=== PATIENT | male | born 1955 | race Caucasian/White ===

== ENCOUNTER → 2016-06-05 | Outpatient (CLI) | payer OTHER ==
[~2016-06-05] MED LIST: ALLOPURINOL100 MG PO; ATARAX,VISTARIL50 MG PO; ATENOLOL50 MG PO; BP MED; Bactroban Oint22 GM T; CHLORDIAZEPOXID10 M2 PO; CHLORDIAZEPOXID25 M1 PO; DICYCLOMINE HCL20 MG PO; EXELON4.6 MG/24 T; FEOSOL325 MG PO; FERROUS SULFAT325 MG PO; FUROSEMIDE20 M1 PO; GEODON20 M1 IM; GOUT MED; HALDOL5 MG PO; HYDROCHLOROTHIA25 M1 PO; IRON324 M1 PO; KLONOPIN2 M1 PO; LIBRIUM5 MG PO; LISINOPRIL20 MG PO; METHOCARBAMOL750 M1 PO; MIRTAZAPINE15 M2 PO; MULTI VITAMINS1 TAB PO; MULTI-VITAMIN1 EACH PO; Motrin,Rufen400 MG PO; NATURE'S BLEND F1 MG PO; NEXIUM40 MG PO; OLANZAPINE10 MG PO; OMEPRAZOLE40 MG PO; ONDANSETRON HYDR4 M1 PO; PRILOSEC40 MG PO; PRINIVIL10 MG PO; PROZAC20 MG PO; ROBAXIN750 MG PO; TENORMIN50 MG PO; THIAMINE HY100 MG/ML IM; VITAMIN D1000 IU PO; VITAMIN D50000 I3 PO; XANAX0.25 MG PO; XANAX1 MG PO; ZESTORETIC PO; ZESTRIL10 MG PO; ZOFRAN ODT4 MG PO; ZOLOFT50 MG PO; ZYPREXA5 M1 PO
== END | disposition home or self-care (01) ==
LOC: RESCLI 02:49
DX: F32.9 Major depressive disorder, single episode, unspecified (principal); I10 Essential (primary) hypertension; M10.9 Gout, unspecified; K21.0 Gastro-esophageal reflux disease with esophagitis

== ENCOUNTER → 2016-09-04 | Outpatient (CLI) | payer MEDICARE, MEDICAID | END | disposition home or self-care (01) | LOC: RESCLI 01:04 | DX: L97.519 Non-pressure chronic ulcer of other part of right foot with unspecified severity (principal); I10 Essential (primary) hypertension; K21.0 Gastro-esophageal reflux disease with esophagitis; E55.9 Vitamin D deficiency, unspecified; E51.9 Thiamine deficiency, unspecified; M10.9 Gout, unspecified; F32.9 Major depressive disorder, single episode, unspecified ==

== ENCOUNTER → 2016-11-13 | Outpatient (CLI) | payer MEDICARE, MEDICAID | END | disposition home or self-care (01) | LOC: RESCLI 03:11 | DX: I10 Essential (primary) hypertension (principal); E55.9 Vitamin D deficiency, unspecified; R07.81 Pleurodynia; M10.9 Gout, unspecified; G62.9 Polyneuropathy, unspecified; K21.0 Gastro-esophageal reflux disease with esophagitis; R73.03 Prediabetes; E51.9 Thiamine deficiency, unspecified; Z87.891 Personal history of nicotine dependence ==

== ENCOUNTER → 2016-11-19 | Outpatient (CLI) | payer MEDICARE, MEDICAID ==
[2016-11-19 11:54] LABS: HEMATOCRIT 33.7 % (42.0-52.0); HEMOGLOBIN 10.1 g/dl (14.0-18.0); MEAN CELL VOLUME 76.4 fl (80.0-94.0); MEAN CORPUSCULAR HGB 22.9 pg (27.0-31.0); MEAN PLATELET VOLUME 10.9 fl (9.6-12.3); RED BLOOD COUNT 4.41 10*6/uL (4.50-5.90); RED CELL DISTRI WIDTH 16.6 % (0-14.5); WHITE BLOOD COUNT 6.3 10*3/uL (4.8-10.8)
[2016-11-19 12:24] LABS: ALBUMIN 3.6 gm/dl (3.1-4.5); ALKALINE PHOSPHATASE 76 U/L (45-117); BUN 13 mg/dl (7-24); CHLORIDE 105 mmol/L (98-107); CHOLESTEROL 137 mg/dL (<200); CREATININE 1.02 mg/dL (0.70-1.30); HDL CHOLESTEROL 45 mg/dl (40-60); LDL CHOLESTEROL 63 mg/dL (9-159); SGOT/AST 14 IU/L (3-35); SGPT/ALT 15 U/L (12-78); SODIUM 139 mmol/L (136-145); TOTAL PROTEIN 7.9 gm/dL (6.4-8.2); TRIGLYCERIDES 147 mg/dl (<150); VLDL CHOLESTEROL 29 mg/dL (6-40)
[2016-11-19 13:12] LABS: VITAMIN D, 25-HYDROXY 33.7 ng/mL (30-100)
== END | disposition home or self-care (01) ==
LOC: LAB 11:34
PROVIDERS: Family Medicine
DX: I10 Essential (primary) hypertension (principal); E55.9 Vitamin D deficiency, unspecified; R73.03 Prediabetes; Z79.899 Other long term (current) drug therapy

== ENCOUNTER → 2016-12-11 | Outpatient (CLI) | payer MEDICARE, MEDICAID | END | disposition home or self-care (01) | LOC: RESCLI 02:10 | DX: E11.40 Type 2 diabetes mellitus with diabetic neuropathy, unspecified (principal); E11.621 Type 2 diabetes mellitus with foot ulcer; R07.81 Pleurodynia; I10 Essential (primary) hypertension; G62.9 Polyneuropathy, unspecified; K21.0 Gastro-esophageal reflux disease with esophagitis; E55.9 Vitamin D deficiency, unspecified; L97.512 Non-pressure chronic ulcer of other part of right foot with fat layer exposed; E51.9 Thiamine deficiency, unspecified; M10.9 Gout, unspecified ==

== ENCOUNTER → 2016-12-13 | Outpatient (CLI) | payer MEDICARE, MEDICAID | END | disposition home or self-care (01) | LOC: CT 00:40 | DX: R91.1 Solitary pulmonary nodule (principal); K44.9 Diaphragmatic hernia without obstruction or gangrene; I31.3 Pericardial effusion (noninflammatory); M47.894 Other spondylosis, thoracic region ==

== ENCOUNTER → 2017-03-13 | Outpatient (CLI) | payer MEDICARE, MEDICAID | END | disposition home or self-care (01) | LOC: RESCLI 08:29 | DX: E11.40 Type 2 diabetes mellitus with diabetic neuropathy, unspecified (principal); I10 Essential (primary) hypertension; M10.9 Gout, unspecified; G62.9 Polyneuropathy, unspecified; K21.0 Gastro-esophageal reflux disease with esophagitis; E55.9 Vitamin D deficiency, unspecified; E51.9 Thiamine deficiency, unspecified; R91.1 Solitary pulmonary nodule; Z87.891 Personal history of nicotine dependence ==

== ENCOUNTER → 2017-06-13 | Outpatient (CLI) | payer MEDICARE, MEDICAID | END | disposition home or self-care (01) | LOC: LAB 00:24 → CT 00:24 | DX: E11.40 Type 2 diabetes mellitus with diabetic neuropathy, unspecified (principal); R91.1 Solitary pulmonary nodule ==

== ENCOUNTER 2017-06-29 02:59 | Inpatient (IN) | payer MEDICARE ==
[2017-06-29] VITALS (67 sets, daily range): BP systolic 67–157; BP diastolic 39–137
[~2017-06-29] VITALS: Ht 198.1 cm; Wt 119.9 kg
--- NOTE | ~2017-06-29 | PR ---
[place], [place] PROGRESS NOTE NAME: SHAMA SMITH [facility] #: [id number] UNIT #: [id number] ROOM: [place] [id number] DOCTOR: CLARA BLANCO MD BIRTHDATE: [birth year] DOS: SUBJECTIVE: The patient had been admitted to the hospital last night to the Intensive Care Unit with history of diarrhea, sepsis, chills and feeling very weak and came to Emergency Department. On investigation was found to be having severe sepsis with hypotension with hypokalemia and hyponatremia and needed to be admitted to the hospital. The patient has past history of anxiety disorder, bipolar, depression, diverticulosis, GERD syndrome, gout, hiatal hernia, hypertension, severe malnutrition and toe ulcer. PAST SURGICAL HISTORY: Right knee surgery and history of colonoscopy and esophagogastroduodenoscopy (EGD). SOCIAL HISTORY: Former smoker, history of alcohol abuse in the past. The patient is feeling somewhat better today. He is not having any fever, but he is complaining of lot of pain in his right foot and right knee, which is possibly due to his gout. LABORATORY DATA: His blood sugar today is 143, phosphorus is 3.3. Lipid profile shows cholesterol 70, HDL 12, LDL 13, triglycerides 244, iron is 9, TSH level is 1.5, T4 is 1.72. Lactic acid is normal at 2. CBC shows white count 15,000, hemoglobin 9.9, hematocrit 32.5 indicating hypochromic anemia and sepsis. Comprehensive metabolic profile shows glucose was 71, BUN 55, creatinine 7.54, GFR 7, sodium 135, potassium 2.8, carbon dioxide 19, calcium 7.3. C-reactive protein ____. Ammonia level is less than 10. OBJECTIVE: VITAL SIGNS: His blood pressure today is 88/49, pulse 75, respirations 18. GENERAL: The patient is more conscious and alert and he feels somewhat better. The patient is getting IV fluid and he is getting IV infusion and he is going to go for CAT scan of the abdomen and also for his foot. CLARA BLANCO MD CM:PNTRANS [id number] CLARA BLANCO MD 06/30/17 0552 interface
--- NOTE | ~2017-06-29 | CON ---
[place], [place] REPORT OF CONSULTATION NAME: SHAMA SMITH UNIT #: [id number] ROOM: [place] [address] DOCTOR: BEST MARIANO MD,SWATI BIRTHDATE: [birth year] DOS: 06/29/2017 The patient was asked for consultation, critical care assessment, but discharged to another facility prior to the physical assessment. SWATI JEWELL MD CM:CONSTR:REPORT OF CONSULTATION 1324 07/02/17 1329 interface
[2017-06-29 03:54] LABS: HEMATOCRIT 32.5 % (42.0-52.0); HEMOGLOBIN 9.9 g/dl (14.0-18.0); MEAN CELL VOLUME 74.2 fl (80.0-94.0); MEAN CORPUSCULAR HGB 22.6 pg (27.0-31.0); MEAN CORPUSCULAR HGB CONC 30.5 g/dl (33.0-37.0); MEAN PLATELET VOLUME 12.4 fl (9.6-12.3); PLATELET COUNT AUTOMATED 140 10*3/uL (130-400); RED BLOOD COUNT 4.38 10*6/uL (4.50-5.90); RED CELL DISTRI WIDTH 17.4 % (0-14.5)
[2017-06-29 04:03] LABS: INTERNATIONAL NORM RATIO 1.1 (2.0-3.5)
[2017-06-29] MEDS ORDERED: 'TENORMIN50 MG PO (04:05)
[2017-06-29] MEDS ORDERED: LISINOPRIL2.5 MG PO (04:06)
[2017-06-29 04:09] LABS: ALBUMIN 2.8 gm/dl (3.1-4.5); ALKALINE PHOSPHATASE 93 U/L (45-117); BUN 55 mg/dl (7-24); CHLORIDE 98 mmol/L (98-107); CREATININE 7.54 mg/dL (0.70-1.30); LIPASE 126 U/L (73-393); POTASSIUM 2.8 mmol/L (3.5-5.1); SGOT/AST 15 IU/L (3-35); SGPT/ALT 15 U/L (12-78); SODIUM 135 mmol/L (136-145); TOTAL PROTEIN 7.3 gm/dL (6.4-8.2)
[2017-06-29 04:11] LABS: TROPONIN I < 0.015 ng/ml (<0.045)
[2017-06-29 04:17] LABS: PLATELET SUFFICIENCY NORMAL (NORMAL); TOTAL CELLS COUNTED 100 #CELLS
[2017-06-29 04:18] LABS: BURR CELLS MODERATE
[2017-06-29 06:20] LABS: FREE T4 1.72 ng/dl (0.76-1.46); PHOSPHOROUS 3.3 mg/dL (2.5-4.9)
[2017-06-29 06:25] LABS: THYROID STIM HORMONE (HS) 1.54 uIU/ml (0.358-4.75)
[2017-06-29] MEDS ORDERED: LISINOPRIL-HCT1 EACH PO (06:33)
[2017-06-29 07:58] LABS: VITAMIN D, 25-HYDROXY 17.7 ng/mL (30-100)
[2017-06-29 13:54] LABS: BILIRUBIN NEGATIVE (NEGATIVE); BLOOD 2+ (NEGATIVE); CLARITY SL CLOUDY (CLEAR); COLOR YELLOW (YELLOW); GLUCOSE NEGATIVE (NEGATIVE); KETONE NEGATIVE (NEGATIVE); LEUKO ESTERASE NEGATIVE (NEGATIVE); NITRITE NEGATIVE (NEGATIVE); PH 5.5 (5.0-9.0); UROBILINOGEN 0.2 E.U./dl (0.2-1.0)
[2017-06-29 14:02] LABS: URINE AMPHETAMINES < 1000 (1000ng/ml); URINE BARBITURATES < 200 (200ng/ml); URINE BENZODIAZEPINES < 200 (200ng/ml); URINE CANNABINOIDS (THC) < 50 (50ng/ml); URINE COCAINE < 300 (300ng/ml); URINE METHADONE < 300 (300ng/ml); URINE OPIATES < 300 (300ng/ml); URINE PHENCYCLIDINE < 25 (25ng/ml)
[2017-06-29 14:50] LABS: BACTERIA TRACE
[2017-06-29 18:33] LABS: ABG HCO3 7.6 mmol/l (22-26); ABG O2 SATURATION 95.8 % (95-97); ARTERIAL BLOOD GAS PCO2 14.9 mmHg (35-45); ARTERIAL BLOOD GAS PH 7.336 (7.35-7.45); ARTERIAL BLOOD GAS PO2 86.5 mmHg (80-90)
[2017-06-29 18:34] LABS: ABG BASE EXCESS -16.5 mmol/L (-2.0-2.0)
[2017-06-29 19:31] LABS: CREATININE 7.41 mg/dL (0.70-1.30); POTASSIUM 2.7 mmol/L (3.5-5.1)
[2017-06-29] MEDS ORDERED: ZYVOX600 MG/300 IV (21:58)
[2017-06-29] MEDS ORDERED: METRONIDAZ500 MG/101 IV (22:00)
[2017-06-29] MEDS ORDERED: ZOSYN 2.252.25 GM/50 IV (22:00)
== END 2017-06-29 23:10 | disposition short-term general hospital (02) | DRG 871 ==
LOC: ED 02:59 → EDHOLD 04:37 → ICCU 04:45
PROVIDERS: Emergency Medicine Emergency Medical Services; Internal Medicine; Internal Medicine Critical Care Medicine; Internal Medicine Nephrology
PROC: 0T9B70Z Drainage of Bladder with Drainage Device, Via Natural or Artificial Opening (ICD-10-PCS; principal; 2017-06-29)
DX: A41.9 Sepsis, unspecified organism (principal); E43 Unspecified severe protein-calorie malnutrition; N17.0 Acute kidney failure with tubular necrosis; E87.2 Acidosis; I95.9 Hypotension, unspecified; L97.519 Non-pressure chronic ulcer of other part of right foot with unspecified severity; E87.1 Hypo-osmolality and hyponatremia; F31.81 Bipolar II disorder; R65.20 Severe sepsis without septic shock; R19.5 Other fecal abnormalities; F10.11 Alcohol abuse, in remission; D50.9 Iron deficiency anemia, unspecified; F41.9 Anxiety disorder, unspecified; I10 Essential (primary) hypertension; K21.9 Gastro-esophageal reflux disease without esophagitis; K57.90 Diverticulosis of intestine, part unspecified, without perforation or abscess without bleeding; K52.9 Noninfective gastroenteritis and colitis, unspecified; R73.9 Hyperglycemia, unspecified; E87.6 Hypokalemia; M1A.9XX1 Chronic gout, unspecified, with tophus (tophi); K44.9 Diaphragmatic hernia without obstruction or gangrene; Z79.899 Other long term (current) drug therapy; Z83.3 Family history of diabetes mellitus; Z68.27 Body mass index [BMI] 27.0-27.9, adult

== ENCOUNTER → 2017-09-03 | Outpatient (CLI) | payer MEDICARE ==
[2017-09-03] VITALS (8 sets, daily range): BP systolic 105–123; BP diastolic 65–77
[~2017-09-03] MED LIST changes: +'TENORMIN50 MG PO; +CARVEDILOL12.5 MG PO; +DULCOLAX10 M1 R; +LISINOPRIL-HCT1 EACH PO; +LISINOPRIL2.5 MG PO; +METRONIDAZ500 MG/101 IV; +MIRALAX POWDER17 G1 PO; +NEPHRO-VITE TA0.8 MG PO; +NORVASC5 MG PO; +OMEPRAZOLE10 MG PO; +OXYCODONE HCL10 M1 PO; +RENAGEL800 M1 PO; +VITAMIN D350000 UNIT PO; +ZOSYN 2.252.25 GM/50 IV; +ZYVOX600 MG/300 IV
[2017-09-03 09:21] LABS: BASO # 0.1 10*3/uL (0.0-0.1); EOS # 0.3 10*3/uL (0.0-0.4); EOS % 4.6 % (1.0-4.0); HEMATOCRIT 25.6 % (42.0-52.0); HEMOGLOBIN 8.1 g/dl (14.0-18.0); LYMPH # 2.4 10*3/uL (1.3-4.4); MEAN CELL VOLUME 91.4 fl (80.0-94.0); MEAN CORPUSCULAR HGB 28.9 pg (27.0-31.0); MEAN CORPUSCULAR HGB CONC 31.6 g/dl (33.0-37.0); MEAN PLATELET VOLUME 8.6 fl (9.6-12.3); MONO # 0.4 10*3/uL (0.1-1.0); NEUT # 3.6 10*3/uL (2.3-7.9); NEUT % 53.1 % (47.0-73.0); PLATELET COUNT AUTOMATED 229 10*3/uL (130-400); RED CELL DISTRI WIDTH 14.5 % (0-14.5); WHITE BLOOD COUNT 6.8 10*3/uL (4.8-10.8)
== END | disposition home or self-care (01) ==
LOC: TRNFUSION 00:08
PROVIDERS: Internal Medicine
DX: D64.9 Anemia, unspecified (principal); I11.0 Hypertensive heart disease with heart failure; I50.9 Heart failure, unspecified; F31.9 Bipolar disorder, unspecified; M19.90 Unspecified osteoarthritis, unspecified site; M1A.9XX0 Chronic gout, unspecified, without tophus (tophi); Z89.512 Acquired absence of left leg below knee; Z89.511 Acquired absence of right leg below knee; Z89.022 Acquired absence of left finger(s); Z89.021 Acquired absence of right finger(s)

== ENCOUNTER → 2017-10-10 | Outpatient (CLI) | payer MEDICARE | END | disposition home or self-care (01) | LOC: RESCLI 03:35 | DX: Z48.89 Encounter for other specified surgical aftercare (principal); I73.9 Peripheral vascular disease, unspecified; I12.9 Hypertensive chronic kidney disease with stage 1 through stage 4 chronic kidney disease, or unspecified chronic kidney disease; N18.9 Chronic kidney disease, unspecified; D59.9 Acquired hemolytic anemia, unspecified; K70.9 Alcoholic liver disease, unspecified; A48.3 Toxic shock syndrome; M62.81 Muscle weakness (generalized); M19.91 Primary osteoarthritis, unspecified site; K85.20 Alcohol induced acute pancreatitis without necrosis or infection; F32.9 Major depressive disorder, single episode, unspecified; F10.20 Alcohol dependence, uncomplicated; G62.9 Polyneuropathy, unspecified; K21.0 Gastro-esophageal reflux disease with esophagitis; E55.9 Vitamin D deficiency, unspecified; R91.1 Solitary pulmonary nodule; E66.9 Obesity, unspecified; L97.519 Non-pressure chronic ulcer of other part of right foot with unspecified severity; M25.50 Pain in unspecified joint; E51.9 Thiamine deficiency, unspecified; M1A.9XX1 Chronic gout, unspecified, with tophus (tophi); Z89.511 Acquired absence of right leg below knee; Z89.021 Acquired absence of right finger(s); Z79.899 Other long term (current) drug therapy ==

== ENCOUNTER → 2018-01-24 | Outpatient (CLI) | payer MEDICARE ==
[2018-01-24 14:33] LABS: ALBUMIN 3.9 gm/dl (3.1-4.5); ALKALINE PHOSPHATASE 87 U/L (45-117); BUN 12 mg/dl (7-24); CHLORIDE 106 mmol/L (98-107); CREATININE 1.29 mg/dL (0.70-1.30); PHOSPHOROUS 3.8 mg/dL (2.5-4.9); POTASSIUM 3.9 mmol/L (3.5-5.1); SGOT/AST 12 IU/L (3-35); SGPT/ALT 17 U/L (12-78); SODIUM 139 mmol/L (136-145); TOTAL PROTEIN 8.1 gm/dL (6.4-8.2)
[2018-01-24 14:43] LABS: BASO # 0.1 10*3/uL (0.0-0.1); EOS # 0.6 10*3/uL (0.0-0.4); EOS % 7.2 % (1.0-4.0); HEMATOCRIT 39.7 % (42.0-52.0); HEMOGLOBIN 12.8 g/dl (14.0-18.0); LYMPH # 2.5 10*3/uL (1.3-4.4); LYMPH % 27.8 % (27.0-41.0); MEAN CELL VOLUME 91.3 fl (80.0-94.0); MEAN CORPUSCULAR HGB 29.4 pg (27.0-31.0); MEAN CORPUSCULAR HGB CONC 32.2 g/dl (33.0-37.0); MEAN PLATELET VOLUME 10.9 fl (9.6-12.3); MONO # 0.5 10*3/uL (0.1-1.0); MONO % 5.4 % (3.0-9.0); NEUT # 5.2 10*3/uL (2.3-7.9); NEUT % 58.3 % (47.0-73.0); PLATELET COUNT AUTOMATED 217 10*3/uL (130-400); RED BLOOD COUNT 4.35 10*6/uL (4.50-5.90); RED CELL DISTRI WIDTH 13.6 % (0-14.5); WHITE BLOOD COUNT 8.9 10*3/uL (4.8-10.8)
== END | disposition home or self-care (01) ==
LOC: RESCLI 08:50
PROVIDERS: Internal Medicine
DX: Z48.89 Encounter for other specified surgical aftercare (principal); I12.9 Hypertensive chronic kidney disease with stage 1 through stage 4 chronic kidney disease, or unspecified chronic kidney disease; N18.9 Chronic kidney disease, unspecified; K21.0 Gastro-esophageal reflux disease with esophagitis; K70.9 Alcoholic liver disease, unspecified; M62.81 Muscle weakness (generalized); M19.91 Primary osteoarthritis, unspecified site; M1A.9XX1 Chronic gout, unspecified, with tophus (tophi); G62.9 Polyneuropathy, unspecified; R91.1 Solitary pulmonary nodule; Z89.511 Acquired absence of right leg below knee; Z79.899 Other long term (current) drug therapy; Z89.021 Acquired absence of right finger(s); Z87.891 Personal history of nicotine dependence

== ENCOUNTER → 2018-08-13 | Outpatient (CLI) | payer MEDICARE ==
[~2018-08-13] MED LIST changes: +AMLODIPINE BESYL5 MG PO; +XTAMPZA ER18 MG PO; +ZYVOX600 MG PO
== END | disposition home or self-care (01) ==
LOC: WOUNDCARE 01:59
DX: L02.415 Cutaneous abscess of right lower limb (principal); A49.02 Methicillin resistant Staphylococcus aureus infection, unspecified site; I10 Essential (primary) hypertension; F41.9 Anxiety disorder, unspecified; F31.81 Bipolar II disorder; K21.9 Gastro-esophageal reflux disease without esophagitis; Z87.891 Personal history of nicotine dependence

== ENCOUNTER → 2018-11-14 | Outpatient (CLI) | payer MEDICARE | END | disposition home or self-care (01) | LOC: RESCLI 00:34 | DX: E11.40 Type 2 diabetes mellitus with diabetic neuropathy, unspecified (principal); M10.9 Gout, unspecified; I10 Essential (primary) hypertension; Z89.511 Acquired absence of right leg below knee; Z89.021 Acquired absence of right finger(s); Z79.899 Other long term (current) drug therapy; Z87.891 Personal history of nicotine dependence ==

== ENCOUNTER → 2019-01-23 | Outpatient (CLI) | payer MEDICARE | END | disposition home or self-care (01) | LOC: RESCLI 00:45 | DX: Z23 Encounter for immunization (principal); G62.9 Polyneuropathy, unspecified; M10.9 Gout, unspecified; I12.9 Hypertensive chronic kidney disease with stage 1 through stage 4 chronic kidney disease, or unspecified chronic kidney disease; E11.22 Type 2 diabetes mellitus with diabetic chronic kidney disease; E11.40 Type 2 diabetes mellitus with diabetic neuropathy, unspecified; N18.9 Chronic kidney disease, unspecified; F10.20 Alcohol dependence, uncomplicated; Z79.899 Other long term (current) drug therapy; Z89.511 Acquired absence of right leg below knee; Z89.021 Acquired absence of right finger(s); Z89.512 Acquired absence of left leg below knee; Z79.4 Long term (current) use of insulin; Z87.891 Personal history of nicotine dependence ==

== ENCOUNTER → 2019-02-24 | Outpatient (CLI) | payer MEDICARE | END | disposition home or self-care (01) | LOC: RESCLI 01:31 | DX: I10 Essential (primary) hypertension (principal); G62.9 Polyneuropathy, unspecified; K21.9 Gastro-esophageal reflux disease without esophagitis; M10.9 Gout, unspecified; E11.40 Type 2 diabetes mellitus with diabetic neuropathy, unspecified; Z89.511 Acquired absence of right leg below knee; Z89.021 Acquired absence of right finger(s); Z89.512 Acquired absence of left leg below knee; Z79.899 Other long term (current) drug therapy; Z87.891 Personal history of nicotine dependence ==

== ENCOUNTER → 2019-11-26 | Outpatient (CLI) | payer MEDICARE ==
[2019-11-26 11:27] LABS: BASO # 0.1 10*3/uL (0.0-0.1); BASO % 1.3 % (0.0-1.0); EOS # 0.5 10*3/uL (0.0-0.4); EOS % 7.5 % (1.0-4.0); HEMATOCRIT 39.1 % (42.0-52.0); LYMPH # 1.9 10*3/uL (1.3-4.4); LYMPH % 28.5 % (27.0-41.0); MEAN CELL VOLUME 93.5 fl (80.0-94.0); MEAN CORPUSCULAR HGB 29.9 pg (27.0-31.0); MEAN PLATELET VOLUME 10.5 fl (9.6-12.3); MONO # 0.5 10*3/uL (0.1-1.0); MONO % 7.3 % (3.0-9.0); NEUT # 3.7 10*3/uL (2.3-7.9); NEUT % 55.3 % (47.0-73.0); PLATELET COUNT AUTOMATED 235 10*3/uL (130-400); RED BLOOD COUNT 4.18 10*6/uL (4.50-5.90); RED CELL DISTRI WIDTH 14.1 % (0-14.5); WHITE BLOOD COUNT 6.7 10*3/uL (4.8-10.8)
[2019-11-26 11:50] LABS: ALBUMIN 3.7 gm/dl (3.1-4.5); BUN 14 mg/dl (7-24); CHLORIDE 111 mmol/L (98-107); CHOLESTEROL 159 mg/dL (<200); CREATININE 1.14 mg/dL (0.70-1.30); IRON 66 ug/dL (65-175); POTASSIUM 3.9 mmol/L (3.5-5.1); SGOT/AST 10 IU/L (3-35); SGPT/ALT 16 U/L (12-78); SODIUM 138 mmol/L (136-145); TOTAL IRON BINDING CAPACITY 338 ug/dl (250-450); TRIGLYCERIDES 130 mg/dl (<150); VLDL CHOLESTEROL 26 mg/dL (6-40)
[2019-11-26 11:52] LABS: ALKALINE PHOSPHATASE 68 U/L (45-117); HDL CHOLESTEROL 50 mg/dl (40-60); LDL CHOLESTEROL 83 mg/dL (9-159); TOTAL PROTEIN 7.4 gm/dL (6.4-8.2)
== END | disposition home or self-care (01) ==
LOC: RESCLI 10:31
PROVIDERS: Internal Medicine; ATTEND Internal Medicine Nephrology
DX: M10.9 Gout, unspecified (principal); E11.40 Type 2 diabetes mellitus with diabetic neuropathy, unspecified; I12.0 Hypertensive chronic kidney disease with stage 5 chronic kidney disease or end stage renal disease; N18.9 Chronic kidney disease, unspecified; D50.8 Other iron deficiency anemias; K21.9 Gastro-esophageal reflux disease without esophagitis; Z89.512 Acquired absence of left leg below knee; Z89.511 Acquired absence of right leg below knee; Z79.899 Other long term (current) drug therapy; Z98.890 Other specified postprocedural states; Z87.891 Personal history of nicotine dependence

== ENCOUNTER → 2020-03-10 | Outpatient (CLI) | payer MEDICARE | END | disposition home or self-care (01) | LOC: RESCLI 00:25 | PROVIDERS: ATTEND Internal Medicine Nephrology | DX: I10 Essential (primary) hypertension (principal); M10.9 Gout, unspecified; E11.9 Type 2 diabetes mellitus without complications; K21.9 Gastro-esophageal reflux disease without esophagitis; Z79.899 Other long term (current) drug therapy; Z89.512 Acquired absence of left leg below knee; Z89.511 Acquired absence of right leg below knee ==

== ENCOUNTER 2020-05-25 14:45 | Emergency (ER) | payer OTHER ==
[~2020-05-25] VITALS: Wt 90.7 kg
[2020-05-25] MEDS ORDERED: CEPHALEXIN500 M1 PO (17:56)
[2020-05-25] MEDS ORDERED: HYDROCODONE-AC1 EAC1 PO (17:56)
== END 2020-05-25 18:21 | disposition home or self-care (01) ==
LOC: ED 14:45
DX: T84.84XA Pain due to internal orthopedic prosthetic devices, implants and grafts, initial encounter (principal); I10 Essential (primary) hypertension; K21.9 Gastro-esophageal reflux disease without esophagitis; F32.9 Major depressive disorder, single episode, unspecified; M10.9 Gout, unspecified; Y92.89 Other specified places as the place of occurrence of the external cause

== ENCOUNTER → 2020-07-08 | Outpatient (CLI) | payer OTHER ==
[~2020-07-08] MED LIST changes: +CEPHALEXIN500 M1 PO; +HYDROCODONE-AC1 EAC1 PO
[2020-07-08 16:48] LABS: BASO # 0.1 10*3/uL (0.0-0.1); BASO % 1.2 % (0.0-1.0); EOS # 0.6 10*3/uL (0.0-0.4); EOS % 5.2 % (1.0-4.0); HEMATOCRIT 42.9 % (42.0-52.0); LYMPH # 2.3 10*3/uL (1.3-4.4); LYMPH % 19.2 % (27.0-41.0); MEAN CELL VOLUME 89.2 fl (80.0-94.0); MEAN CORPUSCULAR HGB 28.7 pg (27.0-31.0); MEAN CORPUSCULAR HGB CONC 32.2 g/dl (33.0-37.0); MEAN PLATELET VOLUME 10.4 fl (9.6-12.3); MONO # 1.2 10*3/uL (0.1-1.0); MONO % 9.9 % (3.0-9.0); NEUT # 7.6 10*3/uL (2.3-7.9); NEUT % 64.2 % (47.0-73.0); PLATELET COUNT AUTOMATED 279 10*3/uL (130-400); RED BLOOD COUNT 4.81 10*6/uL (4.50-5.90); WHITE BLOOD COUNT 11.8 10*3/uL (4.8-10.8)
[2020-07-08 16:59] LABS: BUN 13 mg/dl (7-24); CHLORIDE 105 mmol/L (98-107); CREATININE 1.13 mg/dL (0.70-1.30); POTASSIUM 3.7 mmol/L (3.5-5.1); SODIUM 137 mmol/L (136-145)
== END | disposition home or self-care (01) ==
LOC: COVID19 14:09 → LAB 14:09
PROVIDERS: ATTEND Orthopaedic Surgery
DX: Z01.818 Encounter for other preprocedural examination (principal); T84.290A Other mechanical complication of internal fixation device of bones of hand and fingers, initial encounter; Z20.822 Contact with and (suspected) exposure to COVID-19

== ENCOUNTER → 2020-07-12 | Day surgery (SDC) | payer OTHER ==
[2020-07-08 16:04] VITALS: BP 133/79
[~2020-07-12] VITALS: Ht 198.1 cm; Wt 99.8 kg
[2020-07-12 11:03] VITALS: BP 114/72
[2020-07-12 12:32] VITALS: BP 91/57
[2020-07-12 12:47] VITALS: BP 101/63
[2020-07-12 13:02] VITALS: BP 103/64
== END | disposition home or self-care (01) ==
LOC: SDC 07-08 14:00
PROVIDERS: ATTEND Orthopaedic Surgery
DX: T84.290A Other mechanical complication of internal fixation device of bones of hand and fingers, initial encounter (principal); I10 Essential (primary) hypertension; Z87.891 Personal history of nicotine dependence; Y83.8 Other surgical procedures as the cause of abnormal reaction of the patient, or of later complication, without mention of misadventure at the time of the procedure; Z89.512 Acquired absence of left leg below knee; Z89.511 Acquired absence of right leg below knee

== ENCOUNTER → 2020-07-13 | Outpatient (CLI) | payer OTHER | END | disposition home or self-care (01) | LOC: RESCLI 03:34 | PROVIDERS: ATTEND Internal Medicine Nephrology | DX: I12.9 Hypertensive chronic kidney disease with stage 1 through stage 4 chronic kidney disease, or unspecified chronic kidney disease (principal); E11.22 Type 2 diabetes mellitus with diabetic chronic kidney disease; N18.9 Chronic kidney disease, unspecified; M10.9 Gout, unspecified; Z89.511 Acquired absence of right leg below knee; Z79.899 Other long term (current) drug therapy; Z89.029 Acquired absence of unspecified finger(s); Z89.512 Acquired absence of left leg below knee; Z87.891 Personal history of nicotine dependence ==

== ENCOUNTER → 2020-10-13 | Outpatient (CLI) | payer OTHER | END | disposition home or self-care (01) | LOC: RESCLI 01:17 | PROVIDERS: ATTEND Internal Medicine | DX: G62.9 Polyneuropathy, unspecified (principal); I10 Essential (primary) hypertension; K21.00 Gastro-esophageal reflux disease with esophagitis, without bleeding; M1A.9XX0 Chronic gout, unspecified, without tophus (tophi); G54.7 Phantom limb syndrome without pain; F10.20 Alcohol dependence, uncomplicated; E55.9 Vitamin D deficiency, unspecified; Z79.899 Other long term (current) drug therapy; Z87.891 Personal history of nicotine dependence ==

== ENCOUNTER 2020-10-24 14:27 | Emergency (ER) | payer OTHER ==
[~2020-10-24] VITALS: Ht 198.1 cm; Wt 104.3 kg
[2020-10-24 15:29] LABS: BASO # 0.2 10*3/uL (0.0-0.1); BASO % 2.1 % (0.0-1.0); EOS # 0.2 10*3/uL (0.0-0.4); EOS % 2.5 % (1.0-4.0); HEMATOCRIT 46.5 % (42.0-52.0); LYMPH % 25.1 % (27.0-41.0); MEAN CELL VOLUME 86.3 fl (80.0-94.0); MEAN CORPUSCULAR HGB 28.6 pg (27.0-31.0); MEAN CORPUSCULAR HGB CONC 33.1 g/dl (33.0-37.0); MEAN PLATELET VOLUME 10.2 fl (9.6-12.3); MONO # 0.6 10*3/uL (0.1-1.0); MONO % 7.4 % (3.0-9.0); NEUT # 5.1 10*3/uL (2.3-7.9); NEUT % 62.7 % (47.0-73.0); PLATELET COUNT AUTOMATED 249 10*3/uL (130-400); RED BLOOD COUNT 5.39 10*6/uL (4.50-5.90); RED CELL DISTRI WIDTH 14.6 % (0-14.5); WHITE BLOOD COUNT 8.1 10*3/uL (4.8-10.8)
[2020-10-24 15:59] LABS: ALBUMIN 4.3 gm/dl (3.1-4.5); ALKALINE PHOSPHATASE 117 U/L (45-117); BUN 10 mg/dl (7-24); CHLORIDE 107 mmol/L (98-107); CPK 137 U/L (39-308); CREATININE 1.03 mg/dL (0.70-1.30); POTASSIUM 3.3 mmol/L (3.5-5.1); SGOT/AST 53 IU/L (3-35); SGPT/ALT 55 U/L (12-78); SODIUM 141 mmol/L (136-145); TOTAL PROTEIN 8.6 gm/dL (6.4-8.2)
[2020-10-24] MEDS ORDERED: XTAMPZA ER18 MG PO (16:22)
[2020-10-24 16:53] LABS: BILIRUBIN Negative (Negative); BLOOD Trace-Lysed (Negative); CLARITY Clear (Clear); COLOR Yellow (Yellow); GLUCOSE Negative (Negative); KETONE 2+ (Negative); LEUKO ESTERASE Negative (Negative); NITRITE Negative (Negative); PH 5.5 (4.5-8.0); SPECIFIC GRAVITY 1.015 (1.001-1.030)
[2020-10-24 17:01] LABS: URINE AMPHETAMINES < 1000 (1000ng/ml); URINE BARBITURATES < 200 (200ng/ml); URINE BENZODIAZEPINES < 200 (200ng/ml); URINE CANNABINOIDS (THC) < 50 (50ng/ml); URINE COCAINE < 300 (300ng/ml); URINE METHADONE < 300 (300ng/ml); URINE OPIATES > 300 (300ng/ml)
[2020-10-24 17:02] LABS: URINE PHENCYCLIDINE < 25 (25ng/ml)
[2020-10-24 17:24] LABS: BACTERIA TRACE; WBC 0-2 wbc/hpf (0-5)
[2020-10-25 06:20] LABS: BASO # 0.1 10*3/uL (0.0-0.1); BASO % 0.9 % (0.0-1.0); EOS # 0.2 10*3/uL (0.0-0.4); EOS % 2.5 % (1.0-4.0); HEMATOCRIT 40.1 % (42.0-52.0); LYMPH # 1.6 10*3/uL (1.3-4.4); MEAN CELL VOLUME 87.4 fl (80.0-94.0); MEAN CORPUSCULAR HGB 28.8 pg (27.0-31.0); MEAN CORPUSCULAR HGB CONC 32.9 g/dl (33.0-37.0); MEAN PLATELET VOLUME 10.4 fl (9.6-12.3); MONO # 0.7 10*3/uL (0.1-1.0); MONO % 7.8 % (3.0-9.0); NEUT # 6.1 10*3/uL (2.3-7.9); NEUT % 70.6 % (47.0-73.0); PLATELET COUNT AUTOMATED 178 10*3/uL (130-400); RED BLOOD COUNT 4.59 10*6/uL (4.50-5.90); RED CELL DISTRI WIDTH 14.5 % (0-14.5); WHITE BLOOD COUNT 8.7 10*3/uL (4.8-10.8)
[2020-10-25 06:31] LABS: BUN 10 mg/dl (7-24); CHLORIDE 109 mmol/L (98-107); CREATININE 0.93 mg/dL (0.70-1.30); POTASSIUM 3.7 mmol/L (3.5-5.1); SODIUM 140 mmol/L (136-145)
[2020-10-25 06:36] LABS: ETHYL ALCOHOL < 3.0 mg/dl (<3)
== END 2020-10-25 10:35 | disposition home or self-care (01) ==
LOC: ED 14:27
PROVIDERS: Emergency Medicine; Internal Medicine
DX: F10.929 Alcohol use, unspecified with intoxication, unspecified (principal); F43.21 Adjustment disorder with depressed mood; K21.9 Gastro-esophageal reflux disease without esophagitis; I10 Essential (primary) hypertension; M10.9 Gout, unspecified; Z87.891 Personal history of nicotine dependence; Z79.899 Other long term (current) drug therapy; Y90.9 Presence of alcohol in blood, level not specified

== ENCOUNTER 2020-11-06 12:09 | Emergency (ER) | payer OTHER ==
[~2020-11-06] VITALS: Wt 99.8 kg
== END 2020-11-06 15:20 | disposition home or self-care (01) ==
LOC: ED 12:09
DX: S13.9XXA Sprain of joints and ligaments of unspecified parts of neck, initial encounter (principal); M54.6 Pain in thoracic spine; F41.9 Anxiety disorder, unspecified; F31.81 Bipolar II disorder; K21.9 Gastro-esophageal reflux disease without esophagitis; I10 Essential (primary) hypertension; Z89.512 Acquired absence of left leg below knee; Z89.511 Acquired absence of right leg below knee; Z89.022 Acquired absence of left finger(s); Z89.021 Acquired absence of right finger(s); Z79.899 Other long term (current) drug therapy; Z98.890 Other specified postprocedural states; Z87.891 Personal history of nicotine dependence; W19.XXXA Unspecified fall, initial encounter; Y93.89 Activity, other specified; Y92.89 Other specified places as the place of occurrence of the external cause; Y99.8 Other external cause status

== ENCOUNTER → 2020-11-09 | Outpatient (CLI) | payer OTHER | END | disposition home or self-care (01) | LOC: RESCLI 01:48 | PROVIDERS: ATTEND Family Medicine | DX: M54.2 Cervicalgia (principal); I12.9 Hypertensive chronic kidney disease with stage 1 through stage 4 chronic kidney disease, or unspecified chronic kidney disease; N18.9 Chronic kidney disease, unspecified; G54.7 Phantom limb syndrome without pain; M1A.9XX0 Chronic gout, unspecified, without tophus (tophi); F10.20 Alcohol dependence, uncomplicated; E11.40 Type 2 diabetes mellitus with diabetic neuropathy, unspecified; Z79.899 Other long term (current) drug therapy; Z87.891 Personal history of nicotine dependence ==

== ENCOUNTER → 2021-12-11 | Outpatient (CLI) | payer OTHER | END | disposition home or self-care (01) | LOC: RESCLI 01:49 | PROVIDERS: ATTEND Internal Medicine | DX: I12.9 Hypertensive chronic kidney disease with stage 1 through stage 4 chronic kidney disease, or unspecified chronic kidney disease (principal); M54.2 Cervicalgia; G54.7 Phantom limb syndrome without pain; E11.22 Type 2 diabetes mellitus with diabetic chronic kidney disease; M1A.9XX0 Chronic gout, unspecified, without tophus (tophi); Z87.891 Personal history of nicotine dependence; Z98.890 Other specified postprocedural states; N18.9 Chronic kidney disease, unspecified; E55.9 Vitamin D deficiency, unspecified; Z79.899 Other long term (current) drug therapy ==

== ENCOUNTER 2021-12-27 16:23 | Inpatient (IN) | payer OTHER ==
[~2021-12-27] VITALS: Ht 195.5 cm; Wt 101.7 kg
[2021-12-27 16:40] VITALS: BP 149/101
[2021-12-27 17:23] LABS: BILIRUBIN Negative (Negative); BLOOD Negative (Negative); CLARITY Clear (Clear); COLOR Yellow (Yellow); GLUCOSE Negative (Negative); KETONE Trace (Negative); LEUKO ESTERASE Negative (Negative); NITRITE Negative (Negative); PH 6.5 (4.5-8.0); SPECIFIC GRAVITY 1.015 (1.001-1.030)
[2021-12-27 17:31] LABS: BASO # 0.2 10*3/uL (0.0-0.1); BASO % 1.7 % (0.0-1.0); EOS # 0.1 10*3/uL (0.0-0.4); EOS % 0.6 % (1.0-4.0); LYMPH # 0.8 10*3/uL (1.3-4.4); LYMPH % 9.6 % (27.0-41.0); MEAN CELL VOLUME 68.5 fl (80.0-94.0); MEAN CORPUSCULAR HGB 20.2 pg (27.0-31.0); MEAN CORPUSCULAR HGB CONC 29.4 g/dl (33.0-37.0); MONO # 0.5 10*3/uL (0.1-1.0); MONO % 5.8 % (3.0-9.0); NEUT # 7.1 10*3/uL (2.3-7.9); PLATELET COUNT AUTOMATED 317 10*3/uL (130-400); RED BLOOD COUNT 4.96 10*6/uL (4.50-5.90); RED CELL DISTRI WIDTH 18.7 % (0-14.5); WHITE BLOOD COUNT 8.7 10*3/uL (4.8-10.8)
[2021-12-27 17:31] LABS: URINE AMPHETAMINES < 1000 (1000ng/ml); URINE BARBITURATES < 200 (200ng/ml); URINE BENZODIAZEPINES < 200 (200ng/ml); URINE CANNABINOIDS (THC) < 50 (50ng/ml); URINE COCAINE < 300 (300ng/ml); URINE METHADONE < 300 (300ng/ml); URINE OPIATES > 300 (300ng/ml)
[2021-12-27 17:34] LABS: URINE PHENCYCLIDINE < 25 (25ng/ml)
[2021-12-27 17:42] LABS: BACTERIA 1+; EPITHELIAL CELLS 0-2; HYALINE CAST 0-2; WBC 0-2 wbc/hpf (0-5)
[2021-12-27 17:49] LABS: ALKALINE PHOSPHATASE 94 U/L (45-117); BUN 10 mg/dl (7-24); CHLORIDE 109 mmol/L (98-107); CREATININE 1.05 mg/dL (0.70-1.30); LIPASE 115 U/L (73-393); POTASSIUM 3.3 mmol/L (3.5-5.1); SGOT/AST 20 IU/L (3-35); SGPT/ALT 22 U/L (12-78); SODIUM 143 mmol/L (136-145); TOTAL PROTEIN 7.7 gm/dL (6.4-8.2)
[2021-12-27 17:50] LABS: ACETAMINOPHEN (TYLENOL) < 5.0 ug/ml (10-30)
[2021-12-27] MEDS ORDERED: XTAMPZA ER18 MG PO (21:44)
[2021-12-27] MEDS ORDERED: AMLODIPINE BESY10 MG PO (21:45)
[2021-12-27 22:04] VITALS: BP 155/89
[2021-12-28 03:03] VITALS: BP 143/54
[2021-12-28 06:31] LABS: BASO # 0.1 10*3/uL (0.0-0.1); BASO % 0.9 % (0.0-1.0); EOS # 0.1 10*3/uL (0.0-0.4); EOS % 1.3 % (1.0-4.0); HEMATOCRIT 32.8 % (42.0-52.0); LYMPH % 18.5 % (27.0-41.0); MEAN CELL VOLUME 69.6 fl (80.0-94.0); MEAN CORPUSCULAR HGB 20.4 pg (27.0-31.0); MEAN CORPUSCULAR HGB CONC 29.3 g/dl (33.0-37.0); MEAN PLATELET VOLUME 9.2 fl (9.6-12.3); MONO # 1.1 10*3/uL (0.1-1.0); MONO % 10.2 % (3.0-9.0); NEUT # 7.3 10*3/uL (2.3-7.9); NEUT % 68.8 % (47.0-73.0); NUCLEATED RED BLOOD CELL 0.2 % (0.0-0.0); PLATELET COUNT AUTOMATED 266 10*3/uL (130-400); RED BLOOD COUNT 4.71 10*6/uL (4.50-5.90); RED CELL DISTRI WIDTH 18.6 % (0-14.5); WHITE BLOOD COUNT 10.7 10*3/uL (4.8-10.8)
[2021-12-28 06:51] LABS: ALKALINE PHOSPHATASE 90 U/L (45-117); BUN 10 mg/dl (7-24); CHLORIDE 109 mmol/L (98-107); POTASSIUM 3.6 mmol/L (3.5-5.1); SGOT/AST 13 IU/L (3-35); SGPT/ALT 21 U/L (12-78); SODIUM 144 mmol/L (136-145); TOTAL PROTEIN 7.2 gm/dL (6.4-8.2)
[2021-12-28 07:04] VITALS: BP 132/70
[2021-12-28 08:16] VITALS: BP 155/89
[2021-12-28 09:30] VITALS: BP 120/86
[2021-12-28 12:00] VITALS: BP 103/65
== END 2021-12-28 16:06 | disposition home or self-care (01) | DRG 897 ==
LOC: ED 16:23 → EDHOLD 20:09 → 5E 20:09
PROVIDERS: Family Medicine; Physician Assistant; ADMIT Internal Medicine; ATTEND Internal Medicine
DX: F10.939 Alcohol use, unspecified with withdrawal, unspecified (principal); E87.20 Acidosis, unspecified; E44.0 Moderate protein-calorie malnutrition; F31.9 Bipolar disorder, unspecified; N18.9 Chronic kidney disease, unspecified; K21.9 Gastro-esophageal reflux disease without esophagitis; M10.9 Gout, unspecified; F41.9 Anxiety disorder, unspecified; I12.9 Hypertensive chronic kidney disease with stage 1 through stage 4 chronic kidney disease, or unspecified chronic kidney disease; E87.6 Hypokalemia; D50.9 Iron deficiency anemia, unspecified; E87.8 Other disorders of electrolyte and fluid balance, not elsewhere classified; R73.9 Hyperglycemia, unspecified; Z79.891 Long term (current) use of opiate analgesic; Z89.512 Acquired absence of left leg below knee; Z89.511 Acquired absence of right leg below knee; Z87.891 Personal history of nicotine dependence; Z82.49 Family history of ischemic heart disease and other diseases of the circulatory system; Z68.26 Body mass index [BMI] 26.0-26.9, adult

== ENCOUNTER → 2022-05-08 | Outpatient (CLI) | payer OTHER ==
[~2022-05-08] MED LIST changes: +AMLODIPINE BESY10 MG PO
[2022-05-08 12:51] LABS: BASO # 0.1 10*3/uL (0.0-0.1); BASO % 1.1 % (0.0-1.0); EOS # 0.4 10*3/uL (0.0-0.4); HEMATOCRIT 29.2 % (42.0-52.0); LYMPH # 1.6 10*3/uL (1.3-4.4); LYMPH % 19.2 % (27.0-41.0); MEAN CELL VOLUME 65.3 fl (80.0-94.0); MEAN CORPUSCULAR HGB 17.9 pg (27.0-31.0); MEAN CORPUSCULAR HGB CONC 27.4 g/dl (33.0-37.0); MEAN PLATELET VOLUME 9.2 fl (9.6-12.3); MONO # 0.6 10*3/uL (0.1-1.0); MONO % 7.6 % (3.0-9.0); NEUT # 5.5 10*3/uL (2.3-7.9); NEUT % 66.7 % (47.0-73.0); PLATELET COUNT AUTOMATED 317 10*3/uL (130-400); RED BLOOD COUNT 4.47 10*6/uL (4.50-5.90); WHITE BLOOD COUNT 8.2 10*3/uL (4.8-10.8)
[2022-05-08 13:07] LABS: ALKALINE PHOSPHATASE 71 U/L (46-116); BUN 10 mg/dl (9-23); CHLORIDE 106 mmol/L (98-107); CHOLESTEROL 105 mg/dL (<200); LDL CHOLESTEROL 40 mg/dL (9-159); POTASSIUM 3.9 mmol/L (3.4-5.1); SGPT/ALT 11 U/L (10-49); TOTAL PROTEIN 7.4 gm/dL (6.0-8.0); TRIGLYCERIDES 140 mg/dl (<150)
[2022-05-08 13:33] LABS: VITAMIN D, 25-HYDROXY 21.3 ng/mL (30-100)
== END | disposition home or self-care (01) ==
LOC: RESCLI 11:38
PROVIDERS: Student in an Organized Health Care Education/Training Program; ATTEND Student in an Organized Health Care Education/Training Program
DX: I12.9 Hypertensive chronic kidney disease with stage 1 through stage 4 chronic kidney disease, or unspecified chronic kidney disease (principal); N18.9 Chronic kidney disease, unspecified; D63.1 Anemia in chronic kidney disease; M1A.9XX0 Chronic gout, unspecified, without tophus (tophi); G54.7 Phantom limb syndrome without pain; F10.90 Alcohol use, unspecified, uncomplicated; M19.91 Primary osteoarthritis, unspecified site; Z98.890 Other specified postprocedural states; E55.9 Vitamin D deficiency, unspecified; Z12.5 Encounter for screening for malignant neoplasm of prostate; Z82.49 Family history of ischemic heart disease and other diseases of the circulatory system; Z87.891 Personal history of nicotine dependence; Z79.899 Other long term (current) drug therapy

== ENCOUNTER → 2022-06-04 | Day surgery (SDC) | payer OTHER ==
[~2022-06-04] VITALS: Ht 198.1 cm; Wt 90.7 kg
[2022-06-04 10:12] VITALS: BP 80/47
[2022-06-04 10:27] VITALS: BP 81/45
[2022-06-04 10:42] VITALS: BP 95/51
[2022-06-04 11:08] VITALS: BP 102/57
== END | disposition home or self-care (01) ==
LOC: SDC 05-31 13:15
PROVIDERS: ATTEND Surgery
DX: D50.9 Iron deficiency anemia, unspecified (principal); K57.30 Diverticulosis of large intestine without perforation or abscess without bleeding; K29.50 Unspecified chronic gastritis without bleeding; K44.9 Diaphragmatic hernia without obstruction or gangrene; E11.40 Type 2 diabetes mellitus with diabetic neuropathy, unspecified; I12.9 Hypertensive chronic kidney disease with stage 1 through stage 4 chronic kidney disease, or unspecified chronic kidney disease; N18.9 Chronic kidney disease, unspecified; E11.22 Type 2 diabetes mellitus with diabetic chronic kidney disease; M10.9 Gout, unspecified; K21.9 Gastro-esophageal reflux disease without esophagitis; Z79.899 Other long term (current) drug therapy

== ENCOUNTER → 2022-10-26 | Outpatient (CLI) | payer OTHER, MEDICAID ==
[~2022-10-26] MED LIST changes: +OXYCODONE-ACET1 EAC3 PO; +VITAMIN D350 MC2 PO
== END | disposition home or self-care (01) ==
LOC: RESCLI 01:25
PROVIDERS: ATTEND Internal Medicine
DX: F10.20 Alcohol dependence, uncomplicated (principal); F31.9 Bipolar disorder, unspecified; R26.2 Difficulty in walking, not elsewhere classified; G54.7 Phantom limb syndrome without pain; M54.2 Cervicalgia; M1A.9XX0 Chronic gout, unspecified, without tophus (tophi); I10 Essential (primary) hypertension; D50.9 Iron deficiency anemia, unspecified; G47.00 Insomnia, unspecified; E55.9 Vitamin D deficiency, unspecified; Z82.49 Family history of ischemic heart disease and other diseases of the circulatory system; Z98.890 Other specified postprocedural states; Z79.899 Other long term (current) drug therapy

== ENCOUNTER 2024-02-09 21:32 | Emergency (ER) | payer OTHER, MEDICAID ==
[~2024-02-09] VITALS: Ht 182.8 cm; Wt 81.6 kg
[2024-02-09] MEDS ORDERED: Thiamine 200 MG/2 ML VIAL IV ONE (21:40)
[2024-02-09] MEDS ORDERED: SODIUM CHLORIDE 0.9% 1,000 ML IV ONE (21:40)
[2024-02-09 21:52] LABS: BASO # 0.2 10*3/uL (0.0-0.1); BASO % 1.9 % (0.0-1.0); EOS # 0.3 10*3/uL (0.0-0.4); HEMATOCRIT 39.1 % (42.0-52.0); MEAN CELL VOLUME 76.4 fl (80.0-94.0); MEAN CORPUSCULAR HGB 22.7 pg (27.0-31.0); MEAN CORPUSCULAR HGB CONC 29.7 g/dl (33.0-37.0); MEAN PLATELET VOLUME 10.4 fl (9.6-12.3); MONO # 0.5 10*3/uL (0.1-1.0); MONO % 5.3 % (3.0-9.0); NEUT # 4.5 10*3/uL (2.3-7.9); NEUT % 49.6 % (47.0-73.0); PLATELET COUNT AUTOMATED 429 10*3/uL (130-400); RED BLOOD COUNT 5.12 10*6/uL (4.50-5.90); RED CELL DISTRI WIDTH 20.1 % (0-14.5); WHITE BLOOD COUNT 9.1 10*3/uL (4.8-10.8)
[2024-02-09 22:30] LABS: BUN 6 mg/dl (9-23); CHLORIDE 105 mmol/L (98-107); POTASSIUM 3.5 mmol/L (3.4-5.1)
[2024-02-09 22:32] LABS: ETHYL ALCOHOL 352.3 mg/dl (<3)
== END 2024-02-09 23:32 ==
LOC: ED 21:32
PROVIDERS: Nurse Practitioner Family
DX: F10.129 Alcohol abuse with intoxication, unspecified (principal); E78.00 Pure hypercholesterolemia, unspecified; E11.65 Type 2 diabetes mellitus with hyperglycemia; E83.51 Hypocalcemia; E87.6 Hypokalemia; E83.42 Hypomagnesemia; D64.9 Anemia, unspecified; F41.9 Anxiety disorder, unspecified; F31.9 Bipolar disorder, unspecified; K21.9 Gastro-esophageal reflux disease without esophagitis; M10.9 Gout, unspecified; I10 Essential (primary) hypertension; F10.10 Alcohol abuse, uncomplicated; Z98.890 Other specified postprocedural states; Z87.891 Personal history of nicotine dependence; Z79.899 Other long term (current) drug therapy; Y90.8 Blood alcohol level of 240 mg/100 ml or more